=== PATIENT | female | born 1990 | race American Indian/Alaskan Native ===

== ENCOUNTER 2021-11-21 09:29 | Emergency (ER) | payer BC, SELFPAY ==
--- NOTE | 2021-11-21 09:31 | PC.NURSE ---
Report called to JERAMY Brenner at [facility].
[2021-11-21 09:37] VITALS: BP 118/89; PULSE 75; RESP 16; TEMP 36.2; O2SAT 100
[2021-11-21 09:42] VITALS: O2SAT 100
--- NOTE | 2021-11-21 10:10 | ED.GENADULT ---
HPI - General Adult General Chief complaint: Allergic Reaction <JEFF Brown Last Filed: 11/21/21 19:56> Stated complaint: lip swelling <JEFF Brown Last Filed: 11/21/21 19:56> Time Seen by Provider: 11/21/21 09:44 <JEFF Brown Last Filed: 11/21/21 19:56> Source: patient <JEFF Brown Last Filed: 11/21/21 19:56> Mode of arrival: ambulatory <JEFF Brown Last Filed: 11/21/21 19:56> Limitations: no limitations <JEFF Brown Last Filed: 11/21/21 19:56> History of Present Illness HPI narrative: Patient is a 31-year-old female who presents the ED with report of angioedema. Patient reports having intermittent angioedema and urticaria for the past 2 years. She has seen an access registrar over 2 years ago and was told she was allergic to mold but denied any other identifiable allergens. Yesterday she woke up in the morning lower lip swelling. She did show me a picture of this. She took Benadryl and Drea yesterday which improved her lower lip swelling. She then woke up this morning with upper lip swelling which prompted her to come to the ED. She states the swelling typically improves after taking Benadryl once. She has not taken anything further today. Patient also reports having a few scattered hives on her upper and lower extremities that are itchy. Patient denies any tongue swelling, difficulty breathing, wheezing, difficulty swallowing, sensation of throat swelling, itchy throat, chest pain, nausea, vomiting, abdominal pain, diarrhea, syncope. Patient denies any new food exposures or known exposure to mold or any other allergen. <JEFF Brown Last Filed: 11/21/21 19:56> Related Data Allergies/adverse reactions: Allergies Allergy/AdvReac Type Severity Reaction Status Date / Time No Known Allergies Allergy Verified 11/21/21 09:46 <JEFF Brown Last Filed: 11/21/21 19:56> Review of Systems Review of Systems: CONSTITUTIONAL: Denies fever, chills. ENT: Denies tongue swelling, throat swelling, itchy throat, dysphagia, rhinorrhea, congestion, sore throat. CARDIOVASCULAR: Denies chest pain. RESPIRATORY: Denies cough, dyspnea, wheezing. GASTROINTESTINAL: Denies abdominal pain, nausea, vomiting, or diarrhea. SKIN: Reports lip swelling, scattered pruritic urticaria. MUSCULOSKELETAL: Denies back pain. NEUROLOGIC: Denies syncope, headache, numbness, or weakness. 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 HEAD: Normocephalic, atraumatic. EYES: PERRL/EOMI, conjunctivae clear bilaterally. No drainage or swelling. NOSE: Normal, no drainage. THROAT: Pharynx clear, no exudate. No erythema. No signs of laryngeal edema, fully able to see open posterior pharynx. No tongue swelling. No uvula swelling. No swelling of palate. Diffuse swelling of upper lip. No noticeable swelling of lower lip. MMs moist. NECK: Supple. No adenopathy, no masses. RESPIRATORY: Airway patent, respirations nonlabored. Clear to auscultation bilaterally, no rales, rhonchi, wheezing. CARDIOVASCULAR: Regular rate and rhythm without murmurs, rubs, or ga
[2021-11-21] MEDS: diphenhydrAMINE HCl INJ 50 MG/ML VIAL 25 MG IV PUSH (10:33)
[2021-11-21] MEDS: methylPREDNISolone SOD SUCC 125 MG VIAL IV PUSH (10:34)
[2021-11-21] MEDS: FAMOTIDINE 20 MG/2 ML VIAL IV PUSH (10:34)
[2021-11-21 13:00] VITALS: BP 118/83; PULSE 73; RESP 16; O2SAT 98
== END 2021-11-21 13:01 | disposition home or self-care (01) ==
PROVIDERS: Emergency Provider Emergency Medicine
DX: T78.3XXA Angioneurotic edema, initial encounter (principal); Z91.048 Other nonmedicinal substance allergy status
CPT/HCPCS: 96374; 96375; 99284; J1200; J2930

== ENCOUNTER 2025-01-26 15:18 | Outpatient (CLI) | payer BC, SELFPAY ==
--- NOTE | ~2025-01-26 | US_ITS ---
Pelvic ultrasound. Clinical History: Ovarian cyst Technique: Realtime transabdominal and transvaginal scanning of the pelvis was performed. Color flow Doppler and Doppler spectral analysis were performed. Findings: The uterus is anteverted. The endometrial stripe has a thickness of 7 mm. No focal mass is identified. The right ovary measures 1.9 x 2.0 x 2.8 cm. No significant right ovarian or adnexal mass is seen. The left ovary measures 2.1 x 1.5 x 2.1 cm. No significant left ovarian or adnexal mass is seen. There is no evidence of free fluid in the cul de sac. Impression: No significant abnormality seen. Reviewed, dictated and finalized at location . Impression: No significant abnormality seen.
== END 2025-01-26 15:19 | disposition home or self-care (01) ==
LOC: GOSHIMG 15:18
PROVIDERS: PCP Nurse Practitioner Family; Visit Provider Nurse Practitioner Family
DX: N83.209 Unspecified ovarian cyst, unspecified side (principal); R10.2 Pelvic and perineal pain
CPT/HCPCS: 76830; 76856